=== PATIENT | male | born 1965 | race African-American/Black ===

== ENCOUNTER 2016-08-13 14:59 | Inpatient (IN) | payer OTHER ==
[2016-08-13 18:20] VITALS: BMI 39.7
--- NOTE | 2016-08-13 19:40 | HP ---
Admission ROS [facility] [employer] [facility] Chief Complaint: I WANT TO GO TO REHAB Allergies/Adverse Reactions: Allergies Allergy/AdvReac Type Severity Reaction Status Date / Time No Known Allergies Allergy Verified 08/13/16 19:36 History of Present Illness: 51 YEARS OLD MALE WITH LONG HISTORY OF ALCOHOL DEPENDENCE DENIES MEDICAL ISSUE HAS BIPOLAR IS ADMITTED TO REHAB Exam Limitations: No Limitations - Ebola screening Have you traveled outside of the country in the last 21 days: No Have you had contact with anyone from an Ebola affected area: No Have you been sick,other than usual withdrawal symptoms: No Do you have a fever: No - Review of Systems Constitutional: Weight Stable EENT: reports: No Symptoms Reported Respiratory: reports: No Symptoms reported Cardiac: reports: No Symptoms Reported GI: reports: No Symptoms Reported : reports: No Symptoms Reported Musculoskeletal: reports: No Symptoms Reported Integumentary: reports: No Symptoms Reported Neuro: reports: No Symptoms reported Endocrine: reports: No Symptoms Reported Hematology: reports: No Symptoms Reported Psychiatric: reports: Judgement Intact, Orientated x3, Depressed Other Systems: Reviewed and Negative Patient History - Patient Medical History Hx Anemia: No Hx Asthma: No Hx Chronic Obstructive Pulmonary Disease (COPD): No Hx Cancer: No Hx Cardiac Disorders: No Hx Congestive Heart Failure: No Hx Hypertension: No Hx Hypercholesterolemia: No Hx Pacemaker: No HX Cerebrovascular Accident: No Hx Seizures: No Hx Dementia: No Hx Diabetes: No Hx Gastrointestinal Disorders: No Hx Liver Disease: No Hx Genitourinary Disorders: No Hx Sexually Transmitted Disorders: No Hx Renal Disease (ESRD): No Hx Thyroid Disease: No Hx Human Immunodeficiency Virus (HIV): No Hx Hepatitis C: No Hx Depression: No Hx Suicide Attempt: Yes (15 YEARS AGO) Hx Bipolar Disorder: No Hx Schizophrenia: Yes - Patient Surgical History Past Surgical History: No - PPD History Previous Implant?: Yes Documented Results: Negative w/o proof Implanted On Prior [facility] Admission?: No PPD to be Administered?: Yes - Smoking Cessation Smoking history: Never smoked Have you smoked in the past 12 months: No Cigars Per Day: 0 Hx Chewing Tobacco Use: No Initiated information on smoking cessation: No - Substance & Tx. History Hx Alcohol Use: Yes Hx Substance Use: Yes Substance Use Type: Alcohol, Cocaine Hx Substance Use Treatment: Yes - Substances Abused Alcohol Route: Oral Frequency: Daily Amount used: VOLKA 1 L Age of first use: 20 Date of Last Use: 08/06/16 Cocaine Route: Oral Frequency: Daily Amount used: 100$ Age of first use: 20 Date of Last Use: 08/06/16 Family Disease History - Family Disease History Family Disease History: Diabetes: Mother, Other: Father ( CIRRHOSIS LIVER) Admission Physical Exam [facility] - Vital Signs Vital Signs: Vital Signs - 24 hr 08/13/16 18:17 Temperature 96.3 F L Pulse Rate 84 Respiratory 20 Rate Blood Pressure 138/73 - Physical General Appearance: Yes: No Apparent Distress, Appropriately Dressed, Obese HEENTM: Yes: Hearing grossly Normal, Normal ENT Inspection, Normocephalic, Normal Voice Respiratory: Yes: Chest Non-Tender, Lungs Clear, Normal Breath Sounds, No Respiratory Distress, No Accessory Muscle Use Neck: Yes: Supple, Trachea in good position Breast: Yes: Breasts Symetrical Cardiology: Yes: Regular Rhythm, Regular Rate, S1, S2 Abdominal: Yes: Non Tender, Soft Genitourinary: Yes: Within Normal Limits Back: Yes: Normal Inspection Musculoskeletal: Yes: full range of Motion, Gait Steady Extremities: Yes: Normal Inspection, Normal Range of Motion, Non-Tender Neurological: Yes: Fully Oriented, Alert, Motor Strength 5/5, Normal Response Integumentary: Yes: Warm Lymphatic: Yes: Within Normal Limits - Diagnostic (1) Alcohol dependence with uncomplicated withdrawal Current Visit: Yes Status: Acute (2) Cocaine dependence, uncomplicated Current Visit: Yes Status: Acute (3) Bipolar II disorder Current Visit: Yes Status: Suspected Comment: RISPERIDAL Cleared for Admission [facility] - Detox or Rehab [facility] Level of Care: Observation Bed Detox Regimen/Protocol: Not Applicable Claeared for Rehab Admission: Yes [facility] Breath Alcohol Content Breath Alcohol Content: 0 Urine Drug Screen - Results Drug Screen Negative: Yes
[2016-08-13] MEDS ORDERED: MAGNESIUM CITRATE 300 ML BOTTLE PO PRN (19:41)
[2016-08-13] MEDS ORDERED: MAGNESIUM HYDROX 2400MG/30ML ORAL SUSPENSION 30 ML CUP PO PRN (19:41)
[2016-08-13] MEDS ORDERED: LOPERAMIDE HCL 2 MG CAPSULE PO PRN (19:41)
[2016-08-13] MEDS ORDERED: IBUPROFEN 400 MG TABLET (FP) PO PRN (19:41)
[2016-08-13] MEDS ORDERED: MAG HYDROX/AL HYDROX/SIMETH 30 ML UNIT-DOSE CUP PO PRN (19:41)
[2016-08-13] MEDS ORDERED: guaiFENesin/D-METHORPHAN HB 10 ML UNIT-DOSE CUPS PO PRN (19:41)
[2016-08-13] MEDS ORDERED: ACETAMINOPHEN 325 MG TABLET (FP) PO PRN (19:41)
[2016-08-13] MEDS ORDERED: diphenhydrAMINE HCL 50 MG CAPSULE PO PRN (19:41)
[2016-08-13] MEDS ORDERED: MENTHOL/PHENOL 1 EACH UD MM PRN (19:41)
[2016-08-13] MEDS ORDERED: hydrOXYzine PAMOATE 50 MG CAPSULE (FP) PO PRN (19:41)
[2016-08-13] MEDS ORDERED: TUBERCULIN PPD 5 TU/0.1ML VIAL ID ONE (20:37)
[2016-08-13] MEDS: THIAMINE HCL 100 MG TABLET (FP) PO SCH (21:45)
[2016-08-13] MEDS: risperiDONE 1 MG TABLET (FP) PO SCH (22:49)
[2016-08-13] MEDS: QUEtiapine FUMARATE 50 MG TABLET PO SCH (22:49)
--- NOTE | 2016-08-13 22:55 | PN ---
[facility] Progress Note Note: Psychiatry Attending on-call 's note : Made aware of arrival of New Admission. Asked to initiate orders for medications. Spoke to patient via telephone.Clear historian. 51 y/o male recently discharged from [facility]. Diagnosed with MDD with psychotic features (self-report). Co-morbid with alcohol and cocaine dependence. Eager to resume his medications.Endorses good tolerability. Last took medications prior to [facility] visit this morning. Medications requested : seroquel 50 mg po hs risperdal 3 mg po hs risperdal 2 mg po daily zoloft 100 mg po daily. Side effects/benefits discussed with patient. Longitudinal history taken.[facility] report is appreciated.Normal vitals. Doses verified via review of pharmacy claims ([facility] on 05/2016) Medications reconciled (bottles brought up by patient;secured at [facility]). Orders entered as listed above.
[2016-08-13 23:22] LABS: URINE APPEARANCE CLEAR; URINE BILIRUBIN NEGATIVE (NEGATIVE); URINE BLOOD NEGATIVE (NEGATIVE); URINE COLOR LTYELLOW; URINE GLUCOSE (UA) NEGATIVE (NEGATIVE); URINE KETONE NEGATIVE (NEGATIVE); URINE LEUK ESTERASE NEGATIVE (NEGATIVE); URINE NITRITE NEGATIVE (NEGATIVE); URINE PROTEIN NEGATIVE (NEGATIVE); URINE UROBILINOGEN NEGATIVE E.U./dl (0.2-1.0)
[2016-08-14 09:48] LABS: MCH 26.6 pg (25.7-33.7); MCHC 32.2 g/dl (32.0-35.9); MEAN CELL VOLUME 82.6 fl (80-96); MEAN PLT VOLUME 9.8 fl (7.5-11.1); PLATELET COUNT 178 K/MM3 (134-434); RDW 14.4 % (11.9-15.9); WHITE BLOOD COUNT 7.2 K/mm3 (4.0-10.0)
[2016-08-14] MEDS: PRENATAL VITAMINS W/ FOLIC ACID TABLET (FP) PO SCH (09:56)
[2016-08-14] MEDS: SERTRALINE HCL 50 MG TABLET (FP) PO SCH (09:56)
[2016-08-14] MEDS: risperiDONE 2 MG TABLET PO SCH (09:56)
[2016-08-14 10:35] LABS: ALBUMIN 3.2 g/dl (3.4-5.0); ALK PHOS 73 U/L (45-117); ANION GAP 10 (8-16); BILIRUBIN,TOTAL 0.2 mg/dL (0.2-1.0); CALCIUM 8.5 mg/dL (8.5-10.1); CO2 27 mmol/L (21-32); CREATININE 1.2 mg/dL (0.7-1.3); GLUCOSE,RANDOM 137 mg/dL (74-106); SGOT/AST 23 U/L (15-37); SGPT/ALT 38 U/L (12-78); TOT PROT 6.2 g/dl (6.4-8.2)
--- NOTE | 2016-08-14 10:41 | HP ---
Psychiatrist Admission - Data Date of interview: 08/14/16 Admission source: [facility] Identifying data: THis is the first 5N inpatient rehabilitation admission for thsi 51 year old back male unemployed and domiciled. Medical History: Patient reports a good physical health Psychiatric History: Patient reports carries a diagnosis of Schizoaffective disorder, he is poor historian, history of suicide attempt 15 years ago, admits 5 or 6 psychiatric hospitalizations, with most recent at [facility] for 2 weeks , states he stopped his medications and was drinking and using cocaine.States he sees the psychiatrist at his residence and currently on Risperdal 2 mg am amd 3 mg hs, Zoloft 100 mg am and Seroquel 50 mg hs. Physical/Sexual Abuse/Trauma History: Denies history of sexual, physical and verbal abuse. Vital Signs: Vital Signs - 24 hr 08/13/16 08/14/16 08/14/16 18:17 00:30 03:30 Temperature 96.3 F L Pulse Rate 84 Respiratory 20 18 18 Rate Blood Pressure 138/73 08/14/16 07:13 Temperature 98.2 F Pulse Rate 86 Respiratory 20 Rate Blood Pressure 112/79 Allergies/Adverse Reactions: Allergies Allergy/AdvReac Type Severity Reaction Status Date / Time No Known Allergies Allergy Verified 08/13/16 19:36 Date of last physical exam: 08/13/16 Concur with the findings of this exam: Yes - Substance Abuse/Tx History Hx Alcohol Use: Yes (1 lt daily ) Hx Substance Use: Yes Substance Use Type: Cocaine ($100 daily ) Hx Substance Use Treatment: Yes - Admission Criteria Previous failed treatment: Yes Poor recovery environment: Yes Comorbidities: Yes Lacks judgement: Yes Mental Status Exam - Mental Status Exam Alert and Oriented to: Time, Place, Person Cognitive Function: Fair Patient Appearance: Well Groomed Mood: Anxious Affect: Appropriate, Mood Congruent Patient Behavior: Appropriate, Cooperative Speech Pattern: Clear, Appropriate Voice Loudness: Normal Thought Process: Intact, Goal Oriented Thought Disorder: Not Present Hallucinations: Denies Suicidal Ideation: Denies, Past (15 years ago) Homicidal Ideation: Denies Insight/Judgement: Fair Sleep: Fair Appetite: Good Muscle strength/Tone: Normal Gait/Station: Normal Psychiatric Findings - Problem List ([place] 1, 2,3) (1) Alcohol dependence with uncomplicated withdrawal Current Visit: Yes Status: Acute (2) Cocaine dependence, uncomplicated Current Visit: Yes Status: Acute (3) Schizoaffective disorder Current Visit: Yes Status: Acute - Initial Treatment Plan Initial Treatment Plan: will continue his current medications, monitor progress as needed.
--- NOTE | 2016-08-14 11:25 | EKG ---
Test Reason : Blood Pressure : / mmHG Vent. Rate : 094 BPM Atrial Rate : 094 BPM P-R Int : 178 ms QRS Dur : 094 ms QT Int : 368 ms P-R-T Axes : 037 -06 013 degrees QTc Int : 460 ms SINUS RHYTHM WITH PREMATURE ATRIAL COMPLEXES INCOMPLETE RIGHT BUNDLE BRANCH BLOCK MINIMAL VOLTAGE CRITERIA FOR LVH, MAY BE NORMAL VARIANT BORDERLINE ECG NO PREVIOUS ECGS AVAILABLE Confirmed by TARAS HERNANDEZ, LUIS M ([id number]) on 08/14/2016 11:25:13 AM Referred By: Confirmed By:LUIS M GRAJEDA MD
[2016-08-14 11:30] LABS: HIV 1 & 2 AB NEGATIVE; HIV 1 AGp24 NEGATIVE
[2016-08-14] MEDS: THIAMINE HCL 100 MG TABLET (FP) PO SCH (21:20)
[2016-08-14] MEDS: risperiDONE 1 MG TABLET (FP) PO SCH (21:20)
[2016-08-14] MEDS: QUEtiapine FUMARATE 50 MG TABLET PO SCH (21:20)
[2016-08-15] MEDS: PRENATAL VITAMINS W/ FOLIC ACID TABLET (FP) PO SCH (09:52)
[2016-08-15] MEDS: SERTRALINE HCL 50 MG TABLET (FP) PO SCH (09:53)
[2016-08-15] MEDS: risperiDONE 2 MG TABLET PO SCH (09:53)
[2016-08-15] MEDS: THIAMINE HCL 100 MG TABLET (FP) PO SCH (21:11)
[2016-08-15] MEDS: risperiDONE 1 MG TABLET (FP) PO SCH (21:11)
[2016-08-15] MEDS: QUEtiapine FUMARATE 50 MG TABLET PO SCH (21:11)
[2016-08-15] MEDS: CLOTRIMAZOLE/BETAMET DIPROP 15 GM TUBE TP SCH (21:12)
[2016-08-16] MEDS: risperiDONE 2 MG TABLET PO SCH (10:00)
[2016-08-16] MEDS: PRENATAL VITAMINS W/ FOLIC ACID TABLET (FP) PO SCH (10:00)
[2016-08-16] MEDS: CLOTRIMAZOLE/BETAMET DIPROP 15 GM TUBE TP SCH ×2 (10:01→21:14)
[2016-08-16] MEDS: SERTRALINE HCL 50 MG TABLET (FP) PO SCH (10:01)
[2016-08-16] MEDS: P-EPHED 60MG/TRIPROLIDI 2.5MG TABLET PO PRN (19:07)
[2016-08-16] MEDS: risperiDONE 1 MG TABLET (FP) PO SCH (21:12)
[2016-08-16] MEDS: QUEtiapine FUMARATE 50 MG TABLET PO SCH (21:12)
[2016-08-16] MEDS: THIAMINE HCL 100 MG TABLET (FP) PO SCH (21:12)
[2016-08-17] MEDS: P-EPHED 60MG/TRIPROLIDI 2.5MG TABLET PO PRN ×2 (06:18→17:46)
[2016-08-17] MEDS: SERTRALINE HCL 50 MG TABLET (FP) PO SCH (09:47)
[2016-08-17] MEDS: PRENATAL VITAMINS W/ FOLIC ACID TABLET (FP) PO SCH (09:47)
[2016-08-17] MEDS: risperiDONE 2 MG TABLET PO SCH (09:48)
[2016-08-17] MEDS: CLOTRIMAZOLE/BETAMET DIPROP 15 GM TUBE TP SCH ×2 (09:49→21:26)
[2016-08-17] MEDS: THIAMINE HCL 100 MG TABLET (FP) PO SCH (21:26)
[2016-08-17] MEDS: QUEtiapine FUMARATE 50 MG TABLET PO SCH (21:26)
[2016-08-17] MEDS: risperiDONE 1 MG TABLET (FP) PO SCH (21:26)
[2016-08-18] MEDS: PRENATAL VITAMINS W/ FOLIC ACID TABLET (FP) PO SCH (09:59)
[2016-08-18] MEDS: risperiDONE 2 MG TABLET PO SCH (10:00)
[2016-08-18] MEDS: SERTRALINE HCL 50 MG TABLET (FP) PO SCH (10:00)
[2016-08-18] MEDS: CLOTRIMAZOLE/BETAMET DIPROP 15 GM TUBE TP SCH ×2 (10:00→21:03)
[2016-08-18] MEDS: P-EPHED 60MG/TRIPROLIDI 2.5MG TABLET PO PRN ×2 (10:01→21:03)
[2016-08-18] MEDS: risperiDONE 1 MG TABLET (FP) PO SCH (21:03)
[2016-08-18] MEDS: THIAMINE HCL 100 MG TABLET (FP) PO SCH (21:03)
[2016-08-18] MEDS: QUEtiapine FUMARATE 50 MG TABLET PO SCH (21:03)
[2016-08-19 06:59] VITALS: BP 139/76; PULSE 77; TEMP 98.1
[2016-08-19] MEDS: SERTRALINE HCL 50 MG TABLET (FP) PO SCH (09:52)
[2016-08-19] MEDS: PRENATAL VITAMINS W/ FOLIC ACID TABLET (FP) PO SCH (09:52)
[2016-08-19] MEDS: CLOTRIMAZOLE/BETAMET DIPROP 15 GM TUBE TP SCH (09:53)
[2016-08-19] MEDS: risperiDONE 2 MG TABLET PO SCH (09:53)
--- NOTE | 2016-08-19 11:13 | PN ---
Psychiatric Progress Note Vital Signs: Vital Signs Period Temp Pulse Resp BP Sys/Arroyo Pulse Ox Last 24 Hr 98.1 F 77 18-20 139/76 Date of Session: 08/19/16 Chief Complaint:: discharge visit HPI: Patient adressed alcohol, cocaine dependence comorbid Schizoaffective disosrder. ROS: WNL Current Medications: Active Medications Generic Name Dose Route Start Last Admin Trade Name Freq PRN Reason Stop Dose Admin Acetaminophen 650 mg 08/13/16 19:41 Tylenol - PO Q4H PRN PAIN Al Hydroxide/Mg Hydroxide 30 ml 08/13/16 19:41 Mylanta Oral Suspension - PO Q6H PRN DYSPEPSIA Clotrimazole 1 applic 08/15/16 22:00 08/19/16 09:53 Lotrisone Cream (Small Tube) TP 1 applic BID CARMEN Administration Diphenhydramine HCl 50 mg 08/13/16 19:41 Benadryl - PO HSMR1 PRN INSOMNIA Eucalyptus/Menthol/Phenol/Sorbitol 1 each 08/13/16 19:41 Cepastat Lozenge - MM Q4H PRN SORE THROAT Guaifenesin 10 ml 08/13/16 19:41 Robitussin Dm - PO Q6H PRN COUGH Hydroxyzine Pamoate 50 mg 08/13/16 19:41 Vistaril - PO Q4H PRN AGITATION Ibuprofen 400 mg 08/13/16 19:41 Motrin - PO Q6H PRN SEVERE PAIN Loperamide HCl 4 mg 08/13/16 19:41 Imodium - PO Q6H PRN DIARRHEA Magnesium Citrate 300 ml 08/13/16 19:41 Citroma - PO Q48H PRN CONSTIPATION Magnesium Hydroxide 30 ml 08/13/16 19:41 Milk Of Magnesia - PO DAILY PRN CONSTIPATION Multivit/Folic Acid/Iron 1 tab 08/14/16 10:00 08/19/16 09:52 Vitamins ([facility]) - PO 1 tab DAILY CARMEN Administration Pseudoephedrine/Triprolidine 1 combo 08/13/16 19:41 08/18/16 21:03 Actifed - PO 1 combo TID PRN Administration NASAL CONGESTION Quetiapine Fumarate 50 mg 08/13/16 22:00 08/18/16 21:03 Seroquel - PO 50 mg HS CARMEN Administration Risperidone 3 mg 08/13/16 22:00 08/18/16 21:03 Risperdal - PO 3 mg HS CARMEN Administration Risperidone 2 mg 08/14/16 10:00 08/19/16 09:53 Risperdal - PO 2 mg DAILY CARMEN Administration Sertraline HCl 100 mg 08/14/16 10:00 08/19/16 09:52 Zoloft - PO 100 mg DAILY CARMEN Administration Thiamine HCl 100 mg 08/13/16 22:00 08/18/16 21:03 Vitamin B1 - PO 100 mg HS CARMEN Administration Current Side Effect: No Lab tests ordered: No Lab tests reviewed: Yes Provider note:: Patient made a decision to terminate treatment, met with the patient to explore reasons for leaving treatment, patient reported that he does not want to stay and wants to leave, encouraged patient to stay and continue his treatment, but continued with discharge process. Patient was referred to [facility], scripts provided, patient is stable for discharge. Total face to face time:: 20 Mental Status Exam - Mental Status Exam Alert and Oriented to: Time, Place, Person Cognitive Function: Good Patient Appearance: Well Groomed Mood: Hopeful Affect: Appropriate, Mood Congruent Patient Behavior: Appropriate, Cooperative Speech Pattern: Clear, Appropriate Voice Loudness: Normal Thought Process: Intact, Goal Oriented Thought Disorder: Not Present Hallucinations: Denies Suicidal Ideation: Denies Homicidal Ideation: Denies Insight/Judgement: Fair Sleep: Fair Appetite: Fair Muscle strength/Tone: Normal Gait/Station: Normal Psychiatric Treatment Plan - Problem List (1) Alcohol dependence with uncomplicated withdrawal Current Visit: Yes (2) Cocaine dependence, uncomplicated Current Visit: Yes (3) Schizoaffective disorder Current Visit: Yes
== END 2016-08-19 10:30 | disposition left against medical advice (07) | DRG 770 ==
LOC: YASAS 14:59 → Y5N 19:53
PROVIDERS: ADMIT Psychiatry & Neurology Psychiatry; ATTEND Psychiatry & Neurology Psychiatry
PROC: HZ42ZZZ Group Counseling for Substance Abuse Treatment, Cognitive-Behavioral (ICD-10-PCS; principal; 2016-08-13)
DX: F10.20 Alcohol dependence, uncomplicated (principal); F14.20 Cocaine dependence, uncomplicated; F25.9 Schizoaffective disorder, unspecified
CPT/HCPCS: 36415; 80053; 81003; 85027; 86593; 87389; 93005; 93010; J2794

== ENCOUNTER 2024-04-30 19:41 | Inpatient (IN) | payer OTHER ==
[2024-04-30 20:02] VITALS: BMI 36.2
[2024-04-30] MEDS ORDERED: BENZONATATE 200 MG CAPSULE PO PRN (20:23)
[2024-04-30] MEDS ORDERED: guaiFENesin 600 MG TABLET.ER (FP) PO PRN (20:23)
[2024-04-30] MEDS ORDERED: ACETAMINOPHEN 325 MG TABLET (FP) PO PRN (20:23)
[2024-04-30] MEDS ORDERED: BISMUTH SUBSALICYLATE 524 MG/30 ML PO PRN (20:23)
[2024-04-30] MEDS ORDERED: DICYCLOMINE HCL 10 MG CAPSULE PO PRN (20:23)
[2024-04-30] MEDS ORDERED: NICOTINE POLACRILEX 2 MG LOZENGE BC PRN (20:23)
[2024-04-30] MEDS ORDERED: NICOTINE POLACRILEX 2 MG GUM BUC PRN (20:23)
[2024-04-30] MEDS ORDERED: MAGNESIUM HYDROX 2400MG/30ML ORAL SUSPENSION 30 ML CUP PO PRN (20:23)
[2024-04-30] MEDS ORDERED: POLYETHYLENE GLYCOL (HEALTHYLAX) 3350 17 GM PACKET PO PRN (20:23)
[2024-04-30] MEDS ORDERED: BENZOCAINE/MENTHOL (CHLORASEPTIC ) LOZENGE MM PRN (20:23)
[2024-04-30] MEDS ORDERED: ONDANSETRON *ODT* 4 MG TABLET SL PRN (20:23)
[2024-04-30] MEDS ORDERED: IBUPROFEN 400 MG TABLET (FP) PO PRN (20:23)
[2024-04-30] MEDS ORDERED: IBUPROFEN 600 MG TABLET (FP) PO PRN (20:23)
[2024-04-30] MEDS ORDERED: LOPERAMIDE HCL 2 MG CAPSULE PO PRN (20:23)
[2024-04-30] MEDS: METOPROLOL TARTRATE 25 MG TABLET (FP) PO ONE (22:06)
[2024-04-30] MEDS: hydrOXYzine PAMOATE 25 MG CAPSULE (FP) PO PRN (22:06)
[2024-04-30] MEDS: METHOCARBAMOL 500 MG TABLET PO PRN (22:06)
[2024-04-30] MEDS: MELATONIN 5 MG TABLETS PO SCH (22:07)
[2024-04-30] MEDS: THIAMINE 100 MG TABLET PO SCH (22:07)
[2024-04-30] MEDS: INSULIN ASPART SLIDING SCALE (NOVOLOG) 1 VIAL SQ SCH (22:08)
[2024-05-01 09:49] LABS: HEMATOCRIT 36.2 % (35.4-49); HEMOGLOBIN 11.4 GM/dL (11.7-16.9); MCHC 31.4 g/dl (32.0-35.9); MEAN CELL VOLUME 82.9 fl (80-96); MEAN PLT VOLUME 9.9 fl (7.5-11.1); PLATELET COUNT 194 10^3/uL (134-434); RBC 4.37 M/mm3 (4.00-5.60); RDW 15.5 % (11.9-15.9); WHITE BLOOD COUNT 6.5 K/mm3 (4.0-10.0)
[2024-05-01 10:04] LABS: POTASSIUM 4.6 mmol/L (3.5-5.1)
[2024-05-01 10:09] LABS: BLOOD UREA NITROGEN 12.7 mg/dL (7-18); CALCIUM 8.9 mg/dL (8.5-10.1)
[2024-05-01 10:12] LABS: CREATININE 0.9 mg/dL (0.55-1.3)
[2024-05-01] MEDS: PRENATAL VITAMINS W/ FOLIC ACID TABLET (FP) PO SCH (10:13)
[2024-05-01 10:14] LABS: BILIRUBIN,TOTAL 0.2 mg/dL (0.2-1); TOT PROT 5.8 g/dl (6.4-8.2)
[2024-05-01] MEDS: MAG HYDROX/AL HYDROX/SIMETH 30 ML UNIT-DOSE CUP PO PRN (10:14)
[2024-05-01] MEDS ORDERED: chlordiazePOXIDE HCL 25 MG CAPSULE PO PRN (10:53)
[2024-05-01] MEDS: chlordiazePOXIDE HCL 25 MG CAPSULE PO SCH (11:11)
[2024-05-03] MEDS: chlordiazePOXIDE HCL 25 MG CAPSULE PO SCH (06:00)
[2024-05-04] MEDS ORDERED: chlordiazePOXIDE HCL 10 MG CAPSULE PO PRN
[2024-05-04] MEDS: chlordiazePOXIDE HCL 10 MG CAPSULE PO SCH (05:38)
[2024-05-05] MEDS: chlordiazePOXIDE HCL 10 MG CAPSULE PO SCH (06:00)
[2024-05-06] MEDS: chlordiazePOXIDE HCL 10 MG CAPSULE PO ONE (05:20)
[2024-05-06] MEDS: NALOXONE (NYS OPIOID OVERDOSE PROGRAM) 4 MG/0.1 ML SPRAY NS SCH (08:47)
[2024-05-06 09:44] VITALS: BP 122/78; PULSE 100; RESP 18; TEMP 97.8
== END 2024-05-06 11:25 | disposition other institution (70) | DRG 774 ==
LOC: YASAS 19:41 → Y3N 21:27
PROVIDERS: ADMIT Allergy & Immunology; ATTEND Surgery
PROC: HZ2ZZZZ Detoxification Services for Substance Abuse Treatment (ICD-10-PCS; principal; 2024-04-30)
DX: F10.230 Alcohol dependence with withdrawal, uncomplicated (principal); F14.20 Cocaine dependence, uncomplicated; F17.210 Nicotine dependence, cigarettes, uncomplicated; F31.81 Bipolar II disorder; F25.9 Schizoaffective disorder, unspecified; Z59.02 Unsheltered homelessness
CPT/HCPCS: 36415; 80053; 82962; 85027; 86780; 93005; 93010